=== PATIENT | female | born 1990 | race Two or more races ===

== ENCOUNTER → 2020-11-25 | Emergency (ER) | payer OTHER ==
[~2020-11-25] VITALS: Ht 170.2 cm; Wt 82.6 kg
[~2020-11-25] MED LIST: KEPPRA500 MG PO; MAALOX ADVANCE355 ML PO; PEPCID AC20 MG PO; SYNTHROID75 MCG PO
== END | disposition home or self-care (01) ==
LOC: ER 10:27
DX: J31.2 Chronic pharyngitis (principal); R13.13 Dysphagia, pharyngeal phase

== ENCOUNTER 2020-11-26 09:37 | Outpatient (CLI) | payer OTHER | END 2020-11-26 12:36 | disposition home or self-care (01) | LOC: OFIC 805 09:37 | PROVIDERS: ATTEND Otolaryngology Otology & Neurotology | DX: J02.8 Acute pharyngitis due to other specified organisms (principal); K21.9 Gastro-esophageal reflux disease without esophagitis; R13.19 Other dysphagia; T17.298A Other foreign object in pharynx causing other injury, initial encounter ==

== ENCOUNTER 2021-02-04 22:45 | Emergency (ER) | payer OTHER ==
[~2021-02-04] VITALS: Ht 170.2 cm; Wt 85.3 kg
[2021-02-05] MEDS ORDERED: KETO10TA2 PO ×2 (03:25→03:31)
== END 2021-02-05 03:42 ==
LOC: ER 22:45
DX: M79.662 Pain in left lower leg (principal)